=== PATIENT | male | born 1985 | race Hispanic/Latino ===

== ENCOUNTER 2018-01-07 15:28 | Emergency (ER) | payer SELFPAY ==
[2018-01-07] MEDS ORDERED: diphenhydrAMINE 50 MG/ML VIAL ONE (16:14)
[2018-01-07] MEDS ORDERED: Metoclopramide HCl 10 MG/2 ML VIAL ONE (16:14)
--- NOTE | 2018-01-07 17:03 | CT ---
CT OF THE BRAIN WITHOUT CONTRAST: 01/07/18 COMPARISON: None. HISTORY: Headache that began Saturday night. TECHNIQUE: Multiple contiguous axial images were obtained in a CT of the brain without contrast. FINDINGS: The brain is normal in morphology and attenuation without focal lesions or confluent areas of infarct ion. There is no evidence of hydrocephalus, intracranial hemorrhage or extra-axial fluid collection. The calvarium and overlying soft tissues are unremarkable. The visualized paranasal sinuses and masto id air cells are well aerated. IMPRESSION: No evidence of acute intracranial abnormality. POS: [facility]
== END 2018-01-07 17:48 | disposition home or self-care (01) ==
LOC: ERS 15:28
DX: R51 Headache (principal); E11.9 Type 2 diabetes mellitus without complications
CPT/HCPCS: 36416; 70450; 96365; 96375; J1200; J2765

== ENCOUNTER 2019-09-01 14:34 | Outpatient (CLI) | payer SELFPAY ==
[2019-09-01 15:17] LABS: Mean Corpuscular HGB CONC 34.4 g/dL (32.0-36.0); Mean Corpuscular Hemoglobin 29.4 pg (27.0-31.0); Mean Corpuscular Volume 85.4 fL (78.0-98.0); Mean Platelet Volume 9.4 fL (7.4-10.4); Platelet Count 222 thou/uL (130-400); RBC Distribution Width 11.4 % (11.5-14.5); Red Blood Cell (RBC) Count 5.43 mill/uL (4.70-6.10); White Blood Cell (WBC) Count 8.3 thou/uL (4.8-10.8)
[2019-09-01 15:40] LABS: Anion Gap 14 mmol/L (10-20); BUN (Urea Nitrogen) 12 mg/dL (8.9-20.6); Calc. Creatinine Clearance 0 mL/min (70-130); Calcium 9.8 mg/dL (7.8-10.44); Carbon Dioxide 24 mmol/L (22-29); Chloride 98 mmol/L (98-107); Estimated GFR-MDRD Greater than 90; Glucose 390 mg/dL (70-105); Potassium 4.1 mmol/L (3.5-5.1); Sodium 132 mmol/L (136-145)
== END 2019-09-01 14:35 | disposition home or self-care (01) ==
LOC: LABBT 14:34
PROVIDERS: ATTEND Emergency Medicine
DX: Z01.812 Encounter for preprocedural laboratory examination (principal); M75.41 Impingement syndrome of right shoulder; M75.101 Unspecified rotator cuff tear or rupture of right shoulder, not specified as traumatic; S43.401A Unspecified sprain of right shoulder joint, initial encounter; M75.21 Bicipital tendinitis, right shoulder
CPT/HCPCS: 80048; 85027

== ENCOUNTER → 2019-09-10 | Day surgery (SDC) | payer OTHER ==
[2019-09-01 14:38] VITALS: BMI 37.1
[~2019-09-10] MED LIST: Acetaminophen 325 MG TAB PO PRN; Fentanyl 100 MCG/2 ML VIAL IV PRN; Fentanyl 100 MCG/2 ML VIAL ONE; Glycopyrrolate 0.2 MG/ML 5 ML SYRINGE ONE; HYDROcodone/Acetaminophen 10/325 mg Tablet PO PRN; Ketorolac Tromethamine 30 MG/ML VIAL IVP SCH; Lidocaine 1% PF 5 ML VIAL ONE; Metoclopramide HCl 10 MG/2 ML VIAL ONE; Midazolam HCl 2 mg/2 ml Vial ONE; Ondansetron PF 4 MG/2 ML Vial IVP PRN; Ondansetron PF 4 MG/2 ML Vial ONE; PHENYLEPHRINE-NS 100 MCG/ML 10 ML SYRINGE ONE; PROPOFOL 200 MG/20 ML VIAL ONE; Promethazine HCl 25 MG/ML VIAL IM PRN; Rocuronium Bromide 10 MG/ML (10ML VIAL) ONE; Ropivacaine 0.2% 550 ML 550 ML NERVE BLCK SCH; Ropivacaine 0.2% HCl/PF (40 MG/20 ML VIAL) ONE; Ropivacaine 0.5% HCl/PF (150 MG/30 ML VIAL) ONE; Succinylcholine Chloride 20 MG/ML 10 ml SYRINGE FS ONE; Vecuronium 10 MG VIAL ONE; Zolpidem Tartrate 5 MG TAB PO PRN; diphenhydrAMINE 50 MG/ML VIAL ONE; traMADol HCl 50 MG TAB PO PRN
--- NOTE | 2019-09-11 10:47 | OP ---
DATE OF PROCEDURE: 09/10/2019 PREOPERATIVE DIAGNOSES: 1. Right shoulder with rotator cuff tear. 2. Acromioclavicular arthritis. 3. Biceps tendinitis. 4. Superior labrum anterior-posterior tear. POSTOPERATIVE DIAGNOSES: 1. Right shoulder with rotator cuff tear. 2. Acromioclavicular arthritis. 3. Biceps tendinitis. 4. Superior labrum anterior-posterior tear. PROCEDURES PERFORMED: 1. Arthroscopy of the right shoulder with subacromial decompression. 2. Rotator cuff repair. 3. Superior labrum anterior-posterior repair. 4. Excision of distal clavicle. 5. Mini open biceps tenodesis. ANESTHESIA: General. DESCRIPTION OF PROCEDURE: The patient was given preoperative IV antibiotics, taken to the operating room, placed in a supine position. Satisfactory general anesthesia was performed. The patient was then placed in the left lateral decubitus position on a bearden bag and all bony prominences were well padded. The right upper extremity was placed in 15 pounds of traction. The right shoulder and arm were sterilely prepped and draped in the usual fashion. The shoulder was scoped through the posterior, anterior lateral, and superior lateral portals. Upon entering the shoulder joint, there were no arthritic changes in the shoulder joint, but there was significant synovitis. Partial synovectomy was performed using a 90-degree ArthroWand and the shaver. There was a bicipital tendinitis and the biceps tendon was released from the superior aspect of the labrum. There was a tear anterior and posterior in the superior labrum and these were repaired using Arthrex 2.9 PushLock anchors with #2 FiberWire, 2 anchors were utilized. The anterior, posterior, and inferior labrum was in good condition. The subacromial space was then entered. Again, it was noted to be very inflamed with significant synovitis and bursitis. Partial synovectomy and bursectomy were performed. The undersurface of the acromion was prepared with a 90-degree ArthroWand and smoothed down with a high speed hero. The acromioclavicular joint had arthritis, and using the anterior portal, the high-speed hero was used to remove the distal aspect of the clavicle. There was a tear in the anterior fibers of the supraspinatus tendon, that had torn from the greater tuberosity, and this was repaired using Arthrex 4.75 PushLock anchors with FiberTape in a double row fashion. This provided excellent repair of the supraspinatus tendon. A separate incision was made 2.5 cm in length over the anterior aspect of the proximal arm over the bicipital groove. Blunt dissection was made down to the bicipital groove and the biceps tendon was located. The suture was brought through it. A hole was made in the bicipital groove, measuring 7.5 mm, and a bicipital tenodesis was performed using a 7-mm tenodesis anchor. This provided excellent fixation for the bicipital tendon. The wounds were irrigated during the procedure. A 1-inch wound for the bicipital tendon was closed using 0 Vicryl for the fascia over the deltoid muscle, 0 Vicryl for the fat and subcutaneous tissue, and all the skin incisions were closed with 3-0 Rapide. A sterile dressing was applied. The patient will be placed in a shoulder immobilizer. He was awakened, extubated, and transferred to recovery room in stable condition. ESTIMATED BLOOD LOSS: Minimal. COMPLICATIONS: None. DISCHARGE MEDICATIONS: [place] 10/325 one every 6 hours as needed for pain, #40. FOLLOWUP: Follow up in my office next week. Job ID: [id number]
== END ==
LOC: SDC 10:25
PROVIDERS: ATTEND Orthopaedic Surgery
PROC: 0RHJ04Z Insertion of Internal Fixation Device into Right Shoulder Joint, Open Approach (ICD-10-PCS; principal; 2019-09-10)
PROC: 0MM14ZZ Reattachment of Right Shoulder Bursa and Ligament, Percutaneous Endoscopic Approach (ICD-10-PCS; principal; 2019-09-10)
PROC: 0RNJ4ZZ Release Right Shoulder Joint, Percutaneous Endoscopic Approach (ICD-10-PCS; principal; 2019-09-10)
PROC: 0LS10ZZ Reposition Right Shoulder Tendon, Open Approach (ICD-10-PCS; principal; 2019-09-10)
PROC: 0PB94ZZ Excision of Right Clavicle, Percutaneous Endoscopic Approach (ICD-10-PCS; principal; 2019-09-10)
PROC: 3E0T3BZ Introduction of Anesthetic Agent into Peripheral Nerves and Plexi, Percutaneous Approach (ICD-10-PCS; principal; 2019-09-10)
PROC: 0RBJ4ZZ Excision of Right Shoulder Joint, Percutaneous Endoscopic Approach (ICD-10-PCS; principal; 2019-09-10)
PROC: 0LQ14ZZ Repair Right Shoulder Tendon, Percutaneous Endoscopic Approach (ICD-10-PCS; principal; 2019-09-10)
PROC: 0RHJ44Z Insertion of Internal Fixation Device into Right Shoulder Joint, Percutaneous Endoscopic Approach (ICD-10-PCS; principal; 2019-09-10)
DX: M75.121 Complete rotator cuff tear or rupture of right shoulder, not specified as traumatic (principal); M19.011 Primary osteoarthritis, right shoulder; M75.21 Bicipital tendinitis, right shoulder; S43.431A Superior glenoid labrum lesion of right shoulder, initial encounter; M65.811 Other synovitis and tenosynovitis, right shoulder; G89.18 Other acute postprocedural pain; Z79.84 Long term (current) use of oral hypoglycemic drugs; Z87.891 Personal history of nicotine dependence
CPT/HCPCS: A4306; C1713; J0690; J1200; J2001; J2250; J2405; J2704; J2765; J2795; J3010